=== PATIENT | female | born 1990 | race Caucasian/White ===

== ENCOUNTER 2016-09-17 15:51 | Inpatient (IN) | payer OTHER ==
[~2016-09-17] VITALS: Ht 172.7 cm; Wt 126.9 kg
[~2016-09-17 15:51] MED LIST: Ambien PO; BUSPAR5 MG PO; GLUCOPHAGE XR750 MG PO; HYDROCODON-ACE1 EAC7 PO; LAMICTAL100 MG PO; LAMICTAL25 MG PO; LANTUS 3 M100 UNITS/ SC; LANTUS100 UNIT/1 SQ; Lantus 3 ml Solostar SC; MELOXICAM15 MG PO; MULTIVITAMIN1 EAC2 PO; NO HOME MEDS; NOHOMEMEDS; NOVOLOG PE100 UNITS/ SC; NOVOLOG100 UNIT/2 SQ; PERCOCET 5/31 TABLET PO; PROZAC40 MG PO; SERTRALINE HCL50 MG PO; SPIRONOLACTONE50 MG PO; TYLENOL EXTRA500 MG PO; ULTRAM50 MG PO; VALACYCLOVIR500 MG PO; XULANE PATCH1 EACH TD; ZOFRAN4 MG PO
[2016-09-17 18:08] LABS: EOSINOPHIL (%) 1.1 % (0-5); EOSINOPHIL COUNT 0.2 K/uL (0-0.3); HEMATOCRIT 38.6 % (36.0-46.0); IMMATURE GRANULOCYTE (%) 0.3 % (0.0-0.7); IMMATURE GRANULOCYTE COUNT 0.4 K/uL; LYMPHOCYTE COUNT 2.8 K/uL (1.0-2.8); MCH 27.7 PG (29.0-34.0); MCHC 33.2 G/DL (30.0-36.0); MCV 83.5 FL (83-99); MEAN PLAT.VOLUME 9.1 uM^3 (9.5-12.4); MONOCYTE (%) 7.6 % (3-12); NEUTROPHIL (%) 69.9 % (45-76); NEUTROPHIL COUNT 9.3 K/uL (1.8-6.4); PLATELET COUNT 301 K/uL (156-360); RBC DIS.WIDTH-SD 45.7 % (39-53); RED BLOOD COUNT 4.62 M/uL (3.80-5.20); WHITE BLOOD COUNT 13.2 K/uL (4.1-10.2)
[2016-09-17] MEDS ORDERED: SPIRONOLACTONE50 MG PO (18:13)
[2016-09-17] MEDS ORDERED: SERTRALINE HCL100 MG PO (18:13)
[2016-09-17] MEDS ORDERED: BUSPAR15 MG PO (18:14)
[2016-09-17] MEDS ORDERED: LYRICA75 MG PO (18:15)
[2016-09-17] MEDS ORDERED: PROAIR HFA8.5 GM IH (18:15)
[2016-09-17] MEDS ORDERED: STERIOD INJECTION (18:16)
[2016-09-17 18:32] LABS: AMPHETAMINE NEGATIVE (500 ng/mL); BARBITURATES NEGATIVE (200 ng/mL); BENZODIAZEPINES NEGATIVE (150 ng/mL); COCAINE NEGATIVE (150 ng/mL); INTERNAL CONTROLS VALID? YES; METHADONE NEGATIVE (200 ng/mL); METHAMPHETAMINE NEGATIVE (500 ng/mL); OPIATES (MORPHINE) NEGATIVE (100 ng/mL); OXYCODONE NEGATIVE (100 ng/mL); PHENCYCLIDINE NEGATIVE (25 ng/mL); PROPOXYPHENE NEGATIVE (300 ng/mL); THC CANNABINOIDS NEGATIVE (50 ng/mL); TRICYCLIC ANTIDEPRESSANTS NEGATIVE (300 ng/mL)
[2016-09-17 18:33] LABS: CHLORIDE 107 mEq/L (99-109); POTASSIUM 4.1 mEq/L (3.7-5.4); SODIUM 142 mEq/L (136-147)
[2016-09-17 18:35] LABS: GLUCOSE 88 mg/dL (70-99)
[2016-09-17 18:36] LABS: ANION GAP 8 MEQ/L (2-14)
[2016-09-17 18:37] LABS: TOTAL BILIRUBIN 0.2 mg/dL (0.0-1.0)
[2016-09-17 18:38] LABS: SERUM ETHYL ALCOHOL < 10 mg/dL
[2016-09-17 18:39] LABS: ALKALINE PHOSPHATASE 85 IU/L (3-129); GFR ESTIMATE (CALCULATED) > 59 mL/min/
[2016-09-17 18:40] LABS: UREA NITROGEN (BUN) 15 mg/dL (9-23)
[2016-09-17 19:41] VITALS: BP 136/77
[2016-09-18 09:50] VITALS: BP 110/64
[2016-09-18 15:53] VITALS: BP 118/58
[2016-09-19 07:32] VITALS: BP 101/62
[2016-09-19 16:10] VITALS: BP 122/47
[2016-09-20 07:46] VITALS: BP 149/72
[2016-09-20 16:12] VITALS: BP 130/78
[2016-09-21 08:01] VITALS: BP 123/59
[2016-09-21 15:00] VITALS: BP 108/56
[2016-09-22] MEDS ORDERED: HYDROXYZINE PAM25 MG PO (09:48)
[2016-09-22] MEDS ORDERED: BUPROPION HCL100 M1 PO (09:48)
[2016-09-22 10:12] VITALS: BP 115/56
== END 2016-09-22 12:10 | disposition home or self-care (01) | DRG 885 ==
LOC: EME 15:51 → EDOF 18:36 → 1WEST 18:36
PROVIDERS: Emergency Medicine
DX: F33.2 Major depressive disorder, recurrent severe without psychotic features (principal); F60.3 Borderline personality disorder; R45.851 Suicidal ideations; F41.9 Anxiety disorder, unspecified; G89.29 Other chronic pain; E11.9 Type 2 diabetes mellitus without complications; E66.3 Overweight; Z68.41 Body mass index [BMI] 40.0-44.9, adult; K21.9 Gastro-esophageal reflux disease without esophagitis; M51.26 Other intervertebral disc displacement, lumbar region; F17.200 Nicotine dependence, unspecified, uncomplicated; Z79.84 Long term (current) use of oral hypoglycemic drugs
CPT/HCPCS: 80053; 85025; 90839; 94660; 97150 GO; 97166 GO; 99202; 99281; 99285; G0480; Q0177

== ENCOUNTER 2017-12-24 08:52 | Day surgery (SDC) | payer BC ==
[~2017-12-24] VITALS: Ht 172.7 cm; Wt 141.5 kg
[~2017-12-24 08:52] MED LIST changes: +AZO CRANBERRY1 EAC1 PO; +BUPROPION HCL100 M1 PO; +BUSPAR15 MG PO; +HYDROXYZINE PAM25 MG PO; +LYRICA75 MG PO; +NEURONTIN300 MG PO; +NEXIUM40 MG PO; +PROAIR HFA8.5 GM IH; +SERTRALINE HCL100 MG PO; +STERIOD INJECTION; +VITAMIN D31000 UNIT PO; +WELLBUTRIN XL300 MG PO
[2017-12-24 09:39] LABS: HEMATOCRIT 41.9 % (36.0-46.0); HEMOGLOBIN 13.5 G/DL (11.9-15.5); MCHC 32.2 G/DL (30.0-36.0); MCV 83.8 FL (83-99); PLATELET COUNT 342 K/uL (156-360); RBC DIS.WIDTH-CV 14.5 % (11.8-14.6); RBC DIS.WIDTH-SD 43.7 % (39-53); WHITE BLOOD COUNT 10.3 K/uL (4.1-10.2)
[2017-12-24 09:56] LABS: CHLORIDE 103 MEQ/L (99-109); GFR ESTIMATE (CALCULATED) > 59 mL/min/; GLUCOSE 119 mg/dL (70-99); SODIUM 141 MEQ/L (136-147); UREA NITROGEN (BUN) 13 mg/dL (9-23)
[2017-12-24 10:20] VITALS: BP 134/70
[2017-12-24 13:20] VITALS: BP 135/63
[2017-12-24 14:20] VITALS: BP 129/74
[2017-12-24 16:16] VITALS: BP 138/74
== END 2017-12-24 16:15 | disposition home or self-care (01) ==
LOC: SDC 08:52
PROVIDERS: Urology
DX: N20.1 Calculus of ureter (principal); E11.9 Type 2 diabetes mellitus without complications; F41.8 Other specified anxiety disorders; G47.30 Sleep apnea, unspecified; K21.9 Gastro-esophageal reflux disease without esophagitis; J45.909 Unspecified asthma, uncomplicated; Z79.84 Long term (current) use of oral hypoglycemic drugs; F17.210 Nicotine dependence, cigarettes, uncomplicated
CPT/HCPCS: 80048; 81025; 82948; 85027; 93005; C2625; J1580; J1885; J2250; J2405; S0020